=== PATIENT | female | born 1945 | race Caucasian/White ===

== ENCOUNTER 2020-07-05 14:39 | Outpatient (CLI) | payer MEDICARE, SELFPAY ==
--- NOTE | ~2020-07-05 | DEXA_ITS ---
Bone Density Report Name: Danitza Tidwell Age: 75 Sex: Female Ethnicity: White Date of : 1945 Indication: osteopenia; parental hip fracture; height loss; postmenopausal Referring Provider: Leonor, Nuzhat Dhillon Study: Bone densitometry was performed. Exam Date: July 05, 2020 Accession number: [id number] Bone Density: Region BMD T-score Z-score Classification AP Spine(L1, L2, L3) 0.902 -1.1 1.4 Osteopenia Femoral Neck (Left) 0.749 -0.9 1.3 Normal Total Hip (Left) 0.830 -0.9 1.0 Normal Femoral Neck (Right) 0.713 -1.2 1.0 Osteopenia Total Hip (Right) 0.733 -1.7 0.2 Osteopenia Femoral Neck Mean 0.731 -1.1 1.1 Osteopenia Total Hip Mean 0.782 -1.3 0.6 Osteopenia World Health Organization criteria for BMD impression classify patients as: Normal (T-score at or above -1.0), Osteopenia (T-score between -1.0 and -2.5), or Osteoporosis (T-score at or below -2.5). 10-year Fracture Risk(1): Major Osteoporotic Fracture 19% Hip Fracture 9.0% Reported Risk Factors: [place] (), Neck BMD=0.713, BMI=26.6, parental fracture (1) FRAX(R) Version 3.08. Fracture probability calculated for an untreated patient. Fracture probability may be lower if the patient has received treatment. Previous Exams: Region Exam Age BMD T-score BMD Change BMD Change Date g/cm2 vs Baseline vs Previous AP Spine (L1-L3) 07/05/2020 75 0.902 -1.1 -0.060 (-6.3%) -0.060 (-6.3%) 02/03/2018 72 0.962 -0.5 Total Hip(Left) 07/05/2020 75 0.830 -0.9 0.025 (3.1%)# 0.025 (3.1%)# 02/03/2018 72 0.805 -1.1 *Denotes significance at 95% confidence level, LSC for AP Spine = 0.022 g/cm2, LSC for Total Hip = 0.027 g/cm2 # Denotes dissimilar scan types or analysis methods Clinical Information Provided by Patient: Parent has had a hip fracture Has used the following medications: Vitamin D, Calcium, multivitamin Patient maximum height was 67 Menopause Age: 48 No regular weight bearing exercise Onset of menses at age 10 Number of children 0 Impression: The patient has low bone mass, based on the Right Total Hip T-score. The patient has risk factors, including: parental hip fracture. No significant bone loss was observed. Discussion: BONE DENSITY IS LOW AT ONE OR MORE SKELETAL SITES. This patient's lowest T-score is low at one or more skeletal sites. It meets the World Health Organization's (WHO) criteria for ?low bone mass? (T-score between -1.0 and -2.5). The patient's
== END 2020-07-05 14:40 | disposition home or self-care (01) ==
LOC: CHSIMG 14:42
PROVIDERS: PCP Family Medicine; Visit Provider Nurse Practitioner Family
DX: M85.88 Other specified disorders of bone density and structure, other site (principal); Z78.0 Asymptomatic menopausal state
CPT/HCPCS: 77080

== ENCOUNTER 2023-12-28 07:51 | Outpatient (CLI) | payer MEDICARE, SELFPAY | END 2023-12-28 07:52 | disposition home or self-care (01) | LOC: ANHAUDASC 07:53 | PROVIDERS: PCP Family Medicine; Visit Provider Otolaryngology | DX: H61.23 Impacted cerumen, bilateral (principal); J31.0 Chronic rhinitis; H90.3 Sensorineural hearing loss, bilateral | CPT/HCPCS: 92557; 92567 ==

== ENCOUNTER 2024-03-30 11:30 | Outpatient (RCR) | payer MEDICARE, SELFPAY | END 2024-04-10 23:59 | disposition home or self-care (01) | LOC: ANHAUDASC 11:30 | PROVIDERS: PCP Family Medicine; Visit Provider Family Medicine | DX: Z46.1 Encounter for fitting and adjustment of hearing aid (principal) | CPT/HCPCS: 99199; V5261 ==

== ENCOUNTER 2025-04-17 12:59 | Outpatient (CLI) | payer MEDICARE, SELFPAY ==
--- OUTSIDE RECORDS SUMMARY | 2025-04-17 13:40 | XMS_ITS | Clinical Summary ---
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 Name Role Phone Deon Valentino MD Primary Care Provider [phone] Deon Valentino MD Unavailable [phone] Allergies No known active allergies Medications ferrous sulfate 325 mg (65 mg of elemental iron) tablet take 1 Tablet by Oral route every day 0 09/15/19 13 Active aspirin (BABY ASPIRIN) 81 mg chewable tablet chew 1 tablet (81MG) by oral route every day 0 09/16/19 13 Active glucosamine sulfate (GLUCOSAMINE) 500 mg tablet take 1 by Oral route every day 0 09/15/19 13 Active calcium carbonate-vitami n D3 600 mg(1,500mg) -400 unit capsule take 1 by Oral route every day 0 09/15/19 13 Active multivitamin tabletIndication s:Vitamin Deficiency Prevention Take 1 tablet by mouth Active zinc 50 mg tablet Take by mouth Active diphenhydrAMINE (BENADRYL) 25 mg capsule Take 1 tablet/capsul e (25 mg total) by mouth every 6 (six) hours as needed for itching Nighttime sleep aid Active meloxicam (MOBIC) 15 mg tabletIndication s:Acute pain of left knee Take 1 tablet (15 mg total) by mouth daily 30 tablet 1 02/08/20 25 Active hydroCHLOROthiaz lisbeth 12.5 mg tabletIndication s:Essential hypertension TAKE 1/2 TABLET(6.25 MG) BY MOUTH DAILY 30 tablet 3 04/10/20 25 Active hydroCHLOROthiaz lisbeth 12.5 mg tabletIndication s:Essential hypertension TAKE 1/2 TABLET(6.25 MG) BY MOUTH DAILY 30 tablet 3 06/10/20 24 025 Discontinued Active Problems Problem Noted Date Diagnosed Date History of colon polyps 03/09/2025 Acute pain of left knee 02/07/2025 Assessment & Plan (02/07/2025 8:02 AM CDT): No injury mechanism. Left knee pain present for the last 1 month. No abnormal findings on exam. Discussed rest, ice and suggested use of knee brace. Trial course of NSAIDs, prescribed meloxicam 15 mg daily. Aware not to take additional NSAIDs. X-ray ordered today. Patient also interested in physical therapy, referral placed. Aware to reach out if experiencing any new or worsening pain. Will monitor response to above. Acute non-recurrent sinusitis 10/28/2024 Assessment & Plan (10/28/2024 1:26 PM TOWN PLANNER): Reports sinus congestion and cough for the past 3 weeks., Yellow nasal drainage and mild sinus pressure. Denies any fevers, sore throat or ear pain. Prescribed Augmentin, instructed patient to take medication with food. Continue drinking plenty of fluids. Can trial Flonase nasal spray 1-2 sprays 1-2 times per day. URI with cough and congestion 10/28/2024 Assessment & Plan (10/28/2024 1:28 PM TOWN PLANNER): Dry cough for the past 3 weeks, over the last few days has noted some wheezing. Did feel some shortness a breath when walking her dog, this is uncommon for her. No fevers and states she is otherwise feeling well. Normal appetite and energy. Given that she is having some wheezing prescribed low-dose prednisone taper. Reviewed signs and symptoms warranting more immediate evaluation. Would like for her to check back in next week if symptoms are not improving, will plan for chest x-ray. Explained to patient that assessment was limited with video visit. Encounter for screening colonoscopy 05/20/2024 Encounter for annual wellness exam in Medicare p atient 07/10/2022 Assessment & Plan (07/10/2022 8:46 AM TOWN PLANNER): Patient here for annual physical and for review of complete medical problem list. All the elements of the plan were completed as outlined by CMS. A copy of the prevention plan was given to the patient. I reviewed Medicare Wellness Questionnaire (other physicians involved in care, depression screen, advanced directives), cognitive/memory, and functional assessment. I reviewed and updated the complete problem list, medication list, family history, and immunization records with the patient. I provided preventive counseling and early detection interventions to the patient through health maintenance update and summary of today's office visit. Family history of colon cancer 06/05/2021 Overview (06/05/2021): Added automatically from request for surgery [id number] Personal history of colonic polyps 06/05/2021 Overview (06/05/2021): Added automatically from request for surgery [id number] Assessment & Plan (07/10/2022 8:28 AM TOWN PLANNER): Last c-scope 07/2021, recommendation to repeat in 3 years. History of COVID-19 04/22/2021 Assessment & Plan (04/22/2021 10:20 AM CDT): Mild illness course. NO concerning findings on exam or complaints of lingering symptoms. Will continue to monitor. Reviewed red flags with patient. Lipid screening 04/22/2021 Assessment & Plan (01/06/2022 8:31 AM CDT): 03/2021 TC 191 TRG 182 HDL 46 LDL 109 Assessment & Plan (04/22/2021 10:18 AM CDT): Reviewed previous labs, diet and exercise recommendations with patient today. Will check lipids today and call w/ results. BMI 25.0-25.9,adult 04/22/2021 Assessment & Plan (01/06/2022 8:27 AM CDT): Discussed healthy diet and importance of regular physical activity. Assessment & Plan (04/22/2021 10:22 AM CDT): Discussed healthy diet and importance of regular physical activity. BMI is acceptable for this patient. Encounter for colorectal cancer screening 2020 Assessment & Plan (04/22/2021 10:21 AM CDT): Last c-scope 2016 with 5 year recommended follow up. Given referral today. Denies any changes in weight or stool patterns. Encounter for Medicare annual wellness exam 10/2019 Assessment & Plan (07/02/2020 1:39 PM TOWN PLANNER): 1. Eat a healthy diet: focus on lean meats and proteins, more fruits, vegetables and whole grains and low in sugars and fats. Limit red meat and avoid processed meat. 2. Maintain a healthy weight; avoid being overweight. Aim for a normal body mass index (BMI) of 18.5-24.9. Help learning to eat healthier, we can set up appointment with radio station operator/freight brakeman. 3. Have an active lifestyle, strive for 30 minutes of moderate exercise 5 times a week and strength or resistance training at least twice a week. 4. Use broad-spectrum (UVA+UVB) sunscreen with SPF 30 or greater, is water resistant, limit time spent in the sun (10 am-4pm), wear hat, wear UV protective clothing, wear sunglasses. Never use a tanning bed. Skin that was irradiated may be more sensitive over your lifetime. 5. Does not smoke or chew tobacco. 6. Limit alcohol intake, 1 drink per day for a woman. Vitamin D insufficiency 07/02/2020 Assessment & Plan (07/02/2020 1:39 PM TOWN PLANNER): Takes vitamin D The blood level will be checked today. Advise to get 10 min of sun exposure to the hands and face 2-3 days of the week to boost Vit D levels. Need for influenza vaccination 07/02/2020 Assessment & Plan (07/02/2020 3:24 PM TOWN PLANNER): Flu vaccine given today. Discussed possible tenderness/redness at injection site. Encounter for screening mamm ogram for malignant neoplasm of breast 07/02/2020 Assessment & Plan (07/02/2020 3:24 PM TOWN PLANNER): Mammogram order given; will call with results when received. Encouraged to perform monthly SBE. Will have done at [facility] BMI 24.0-24.9, adult 07/02/2020 Assessment & Plan (07/02/2020 3:22 PM TOWN PLANNER): Discussed healthy diet and importance of regular physical activity. BMI is acceptable for this patient. Hemorrhoids 09/26/2019 Assessment & Plan (04/22/2021 10:26 AM CDT): C-scope 2016, hemorrhoids grade II-III Discussed dietary fiber intake of at least 30grams daily. To use miralax prn for constipation and increase hydration. Avoid straining. Reviewed red flags. Will check CBC today. Assessment & Plan (09/26/2019 1:07 PM TOWN PLANNER): Advised on need for fiber and stool softeners in diet. Increase daily hydration. Avoid straining Osteopenia of lumbar spine 01/13/2019 Assessment & Plan (07/10/2022 8:33 AM TOWN PLANNER): Bone density testing completed 07/2020, osteopenia. Continues calcium and vitamin D supplementation. Assessment & Plan (07/02/2020 3:25 PM TOWN PLANNER): Last DEXA 02/03/18 showing lumbar osteopenia. Will have bone scan completed at [facility]. Assessment & Plan (09/12/2019 2:06 PM TOWN PLANNER): Last DEXA 01/2018 showing osteopenia. Follow a Bone Healthy Diet and lifestyle: -Consume Calcium and vit D rich foods -Calcium and vitamin D3 supplementation daily: Calcium 1000-1500mg total daily dose, take with food. Vit D 400IU to 1000 IU total daily dose, unless otherwise instructed or prescription D medication indicated. -Fall precautions. -Perform weight bearing exercises at least 3 days a week for bone strengthening. Vitamin D level ordered; will contact w/results once rec'd. Assessment & Plan (01/13/2019 2:43 PM CDT): Reviewed DEXA from 01/2018. Lumbar spine osteopenia. Vitamin D level ordered. Follow a Bone Healthy Diet and lifestyle: -Consume Calcium and vit D rich foods -Calcium and vitamin D3 supplementation daily: Calcium 1000-1500mg total daily dose, take with food. Vit D 400IU to 1000 IU total daily dose, unless otherwise instructed or prescription D medication indicated. -Fall precautions. -Perform weight bearing exercises at least 3 days a week for bone strengthening. Post-menopausal 01/13/2019 Assessment & Plan (07/02/2020 3:25 PM TOWN PLANNER): Last DEXA 02/03/18 showing lumbar osteopenia. Will have bone scan completed at [facility]. Encounter for screening for lipoid disorders Assessment & Plan (07/02/2020 3:47 PM TOWN PLANNER): 01/19/19 JU=838 HDL=53 VZ=188 LDL=94 TC/HDL=3.2 07/02/20 SY=530 HDL=58 ZP=508 LDL=97 TC/HDL=3.3 Copy of results as well as written explanations given to Mrs Tidwell. The 10-year ASCVD risk score (Wallace JESUS Jr., et al., 2013) is: 27% Values used to calculate the score: Age: 75 years Sex: Female Is Non- : No Diabetic: No Tobacco smoker: No Systolic Blood Pressure: 132 mmHg Is BP treated: Yes HDL Cholesterol: 53 mg/dL Total Cholesterol: 193 mg/dL Assessment & Plan (01/13/2019 2:44 PM CDT): Lipid panel ordered; will call w/results when received. Reviewed diet/exercise recommendations. Essential hypertension 11/29/2014 Overview (12/04/2016): Hypertension Assessment & Plan (07/10/2022 8:47 AM TOWN PLANNER): Blood pressure is well controlled on current medication regimen. Denies any chest pain, shortness breast, palpitations or headaches. No changes made today. Refilled hydrochlorothiazide 6.25 mg daily Assessment & Plan (01/06/2022 8:24 AM CDT): Doing well on current regimen. Checking BP at home. Will call if SBP >140, DBP>90. Continue effort to improve diet-increase fruits/vegetables. Watch sodium intake <2000mg daily Labs ordered; will notify of results. Assessment & Plan (04/22/2021 10:19 AM CDT): BP mildly elevated today, patient has increased sodium consumption (pickles, salted vegetables and watermelon), reviewed recommended intake, sodium <2000mg daily. Will continue to monitor. Advised to check at home or return to office for nurse visit/bp check. Assessment & Plan (07/02/2020 1:38 PM TOWN PLANNER): The blood pressure is under good control. Ideally it should be under 130/80. Continue medications without adjustment. Continue efforts to eat well (4-5 fruits and veggies) daily and exercise for about 30 min nearly every day. Watch salt intake, keeping to less than 2000mg per day. Limit alcohol. Include strategies to cope with stress. Labs ordered today; will contact w/results once received. Assessment & Plan (09/12/2019 2:05 PM TOWN PLANNER): The blood pressure is under good control. Ideally it should be under 130/80. Continue medications without adjustment. Continue efforts to eat well (4-5 fruits and veggies) daily and exercise for about 30 min nearly every day. Watch salt intake, keeping to less than 2000mg per day. Limit alcohol. Include strategies to cope with stress. Labs ordered today; will contact w/results once received. Resolved Problems Problem Noted Date Diagnosed Date Resolved Date PAD (peripheral artery disease) 01/06/2022 05/22/2024 Assessment & Plan (01/06/2022 8:23 AM CDT): Denies any pain or swelling. Discussed use of compression stocking, continued regular exercise and elevating extremities. Continues taking Aspirin daily. Follow up for leg pain or swelling. Gastrointestinal hemorrhage 09/26/2019 07/02/2020 Assessment & Plan (09/26/2019 1:07 PM TOWN PLANNER): Recent CBC stable. Advised if chest pain shortness of breath distress or christopher red blood coming from rectum report immediately to ER or call 911. Will await follow-up with GI. Encounter for medical examin ariane to establish care 09/12/2019 09/12/2019 BMI 25.0-25.9,adult 09/12/2019 07/02/20 20 Assessment & Plan (09/12/2019 2:06 PM TOWN PLANNER): Discussed healthy diet and importance of regular physical activity. BMI is acceptable for this patient. Annual physical exam 01/13/2019 020 Assessment & Plan (01/13/2019 6:32 PM CDT): 1. Eat a healthy diet: focus on lean meats and proteins, more fruits, vegetables and whole grains and low in sugars and fats. Limit red meat and avoid processed meat. 2. Maintain a healthy weight; avoid being overweight. Aim for a normal body mass index (BMI) of 18.5-24.9. Help learning to eat healthier, we can set up appointment with radio station operator/freight brakeman. 3. Have an active lifestyle, strive for 30 minutes of moderate exercise 5 times a week and strength or resistance training at least twice a week. 4. Use broad-spectrum (UVA+UVB) sunscreen with SPF 30 or greater, is water resistant, limit time spent in the sun (10 am-4pm), wear hat, wear UV protective clothing, wear sunglasses. Never use a tanning bed. Skin that was irradiated may be more sensitive over your lifetime. 5. Do not smoke or chew tobacco. 6. Limit alcohol intake, 1 drink per day for a woman and 2 drinks per day for a man. HEALTH SCREENINGS: -DEXA completed 02/03/18 (osteopenia) -CRC=07/29/16 AM[facility], recheck 5yrs d/t polyps (Ket[place]) -mamm=spring 2018? [facility]. Release signed today to get copy of results. Need for pneumococcal vaccination 01/13/2019 07/02/2020 Assessment & Plan (01/13/2019 6:12 PM CDT): Pneumovax 23 vaccine given today. Discussed possible tenderness/redness at injection site. Impacted cerumen 12/10/2015 07/02/2020 Overview (12/04/2016): Impacted cerumen of both ears Hematochezia 04/09/2015 07/02/2020 Overview (12/04/2016): BRBPR - Bright red blood per rectum Assessment & Plan (10/03/2019 1:34 PM TOWN PLANNER): Over the last feww weeks has had BRB on TP and once in the stool water. No other sx and cbc good. Most recent colon 16 and 8mm polyp,tics and II-III roids. Offered repeat colonoscopy but presentation most likely roids. Discussed increased dietary fiber. Return prn. Encounters Date Type Department Care Team Description 04/17/2025 Telephone [facility] [address] [phone] Deon Valentino MD Referral Request (Audiology) 03/09/2025 Telephone [facility] at [address] [place] [address] Elvi Castro MA Schedule Colonoscopy 02/14/2025 Results Follow-Up [facility] [address] [phone] Lisa Bedolla NP XR Knee Left 4+ Vw 02/07/2025 8:00 AM CDT - 02/07/2025 11:59 PM CDT Hospital Encounter [facility] [address] [place] [address] Acute pain of left knee Discharge Disposition: Discharge to home or self care 02/07/2025 7:00 AM CDT Office Visit [facility] [address] [phone] Lisa Bedolla NP Acute pain of left knee (Primary Dx); BMI 25.0-25.9,adult 02/07/2025 Telephone [facility] [address] [place] [phone] Deon Valentino MD Medical Question/Miscellan eous 02/01/2025 8:26 AM CDT - 02/01/2025 11:59 PM CDT Hospital Encounter [facility] [address] [place] [address] Screening mammogram, encounter for Discharge Disposition: Discharge to home or self care 02/01/2025 Results Follow-Up [facility] [address] [place] [phone] Deon Valentino MD Screening Mammogram Bilateral W Lloyd from Last 3 Months Immunizations Immunization Administration Dates Next Due Influenza, Quadrivalent, Hig h Dose, Preservative Free, Intrr 08/11/2023,07/10/2022,07/08/2021,07/02 Influenza, Quadrivalent, Spl it, Preservative Free, Intramuscular 09/09/2016 Influenza, Trivalent, High D ose, Split, Preservative Free, Intramuscular 08/12/2024,08/01/2019,07/12/2018,07/06 Influenza, Trivalent, IM (MDV) 07/31/2014,2012 Influenza, Trivalent, Preser vative Free, Intramuscular 07/01/2014 Influenza, Unspecified 04/22/2021(Deferr ed: Patient Refused),09/07/2017(Deferred: Patient Refused) Pfizer SARS-CoV-2 Monovalent Vaccination (12+ Yrs) PURPLE 11/16/2020,10/26/2020 Pneumococcal Conjugate PCV 13 11/21/2015 Pneumococcal Polysaccharide PPV23 01/13/2019 ZOSTER Recombinant 04/09/2020,09/16/2019 Surgical History Surgery Date Site/Laterality Comments COLONOSCOPY 07/29/2016 BREAST BIOPSY 08/31/1989 - 08/30/1990 Bilateral pt unsure of year, states benign, she does remember having to go to surgery for one maybe 1989ish w scar under breast (unsure which breast), no scars visible. 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 HTN (hypertension) Fibrocystic disease of breast Adenomatous colon polyp Vitamin D deficiency Low bone mass Family History Medical History Relation Name Comments Other Brother 2 Alive and well; Skin cancer Brother 3 cancer, skin; Heart disease Father Heart disease; Cause of : Heart disease Heart disease Mother Heart disease; Hypertension Mother Hypertension; Breast cancer Sister 1 Colon cancer Sister 1 Other Sister 2 Alive and well; Ovarian cancer Neg Hx Thyroid cancer Neg Hx Relation Name Status Comments Brother 1 Alive Brother 2 Brother 3 Father (Age 92) Mother (Age 95) Sister 1 Alive Sister 2 Social History Tobacco Use Types Packs/Day Years Used Date Smoking Tobacco: Never Smokeless Tobacco: Never Alcohol Use Standard Drinks/Week Comments Yes 0 (1 standard drink = 0.6 oz pure alcohol) a glass a wine, 2-3 times a week. AUDIT-C Answer Date Recorded Q1: How often do you have a drink containing alc ohol? 2-4 times a month 07/25/2024 Q2: How many drinks containi ng alcohol do you have on a typical day when you are drinking? 5 or 6 07/25/2024 Q3: How often do you have si x or more drinks on one occasion? Never 07/25/2024 PHQ-2 Answer Date Recorded PHQ-2 Total Score (If total score is 3 or more points, staff should administer the PHQ-9) 0 02/07/2025 Personal Safety Answer Date Recorded Have you ever been in or are you currently in a harmful physical or emotional relationship or is someone making you feel afraid or unsafe? Denies 07/26/2024 Comments No Sex and Gender Information Value Date Recorded Sex Assigned at Not on file Legal Sex Female 9:07 PM TOWN PLANNER Gender Identity Not on file Sexual Orientation Not on file Obstetrics History Para Term AB IAB SAB Ectopic Multiple Livin g Live Births 0 0 0 0 0 0 0 0 0 0 0 Last Filed Vital Signs Vital Sign Reading Time Taken Comments Blood Pressure 116/68 02/07/2025 6:55 AM CDT Pulse 78 02/07/2025 6:55 AM CDT Temperature 36.8 C (98.2 F) 07/26/2024 9:01 AM TOWN PLANNER Respiratory Rate 16 02/07/2025 6:55 AM CDT Oxygen Saturation 99% 02/07/2025 6:55 AM CDT room air Inhaled Oxygen Concentration - - Weight 73.9 kg (163 lb) 02/07/2025 6:55 AM CDT Height 170.2 cm (5' 7) 02/07/2025 6:55 AM CDT Body Mass Index 25.53 02/07/2025 6:55 AM CDT Plan of Treatment Upcoming Encounters Date Type Department Care Team (Late st Contact Info) Description 08/07/2025 12:30 PM TOWN PLANNER Hospital Encounter [address] [address] Tramaine Newberry DO [address] [place] [address] 08/07/2025 12:30 PM TOWN PLANNER - 08/07/2025 1:00 PM TOWN PLANNER Surgery [address] [address] Tramaine Newberry, [address] [place] [address] COLONOSCOPY Scheduled Procedures Name Priority Associated Diagnoses Date/Ti me COLONOSCOPY History of colon polyps Family history of colon cancer 08/07/2025 12:30 PM TOWN PLANNER Health Maintenance Due Date Last Done Comments DTaP/Tdap/Td Vaccine (1 - Tdap) 1956 Hepatitis B Screening 1963 Covid-19 Vaccine (3 - 2023-2 5 season) 2024 11/16/2020, 10/26/2020 Osteoporosis Screening-Bone Density Scan 09/23/2024 09/23/2022, 07/05/2020, 02/03/2018 Influenza Vaccine (#1) 2025 , 08/11/2023, 07/10/2022, Additional history exists Well Visit 65+ 05/13/2025 05/13/2024, 12/29, 07/10/2022, Additional history exists Depression Screening 02/07/2026 02/07/2025, 10/28/2024, 05/13/2024, Additional history exists Fall Risk Assessment 02/07/2026 02/07/2025, 10/28/2024, 05/13/2024, Additional history exists Pneumococcal vaccine 65+ Completed 01/13/2019, 10/30 Zoster Vaccine Completed 04/09/2020, 09/16/2019 Procedures Procedure Name Priority Date/Time Associated Diagnosis Comments XR KNEE LEFT 4 OR MORE VIEWS Schedule Routine, Read Routine (OP Routine) 02/07/2025 8:20 AM CDT Acute pain of left knee SCREENING MAMMOGRAM BILATERAL W LLOYD Schedule Routine, Read Routine (OP Routine) 02/01/2025 8:52 AM CDT Screening mammogram, encounter for DEXA AXIAL SKELETON BONE DENSITY 1 OR MORE SITES Schedule Routine, Read Routine (OP Routine) 09/23/2022 1:52 PM TOWN PLANNER Osteopenia of lumbar spine from Last 3 Months or Most Recently Relevant to Health Maintenance Results * XR Knee Left 4+ Vw (02/07/2025 8:20 AM CDT) Anatomical Region Laterality Modality Lower Extremities, Knee Left Computed Radiography 02/07/2025 4:57 PM CDT Narrative 02/07/2025 4:58 PM CDT EXAM DESCRIPTION: XR KNEE LEFT 4 OR MORE VIEWS REASON FOR STUDY: left knee pain, no known injury Medial pain in knee x 1-2 months No previous injury or surgery FINDINGS: Four views submitted without comparison. No acute fracture. [id number] medial predominant tricompartmental left knee osteoarthritis. Posterior recess loose bodies are present. No effusion. IMPRESSION: [id number] medial predominant tricompartmental left knee osteoarthritis with posterior recess loose bodies. THIS IS AN ELECTRONICALLY VERIFIED FINAL REPORT 02/07/2025 4:58 PM - Electronically signed by Ankur Parker M.D. MF: [id number] Report ID: [id number] Reading Location: [id number] Procedure Note Ankur Parker MD - 02/07/2025 EXAM DESCRIPTION: XR KNEE LEFT 4 OR MORE VIEWS REASON FOR STUDY: left knee pain, no known injury Medial pain in knee x 1-2 months No previous injury or surgery FINDINGS: Four views submitted without comparison. No acute fracture. [id number]-[id number] medial predominant tricompartmentalleft knee osteoarthritis. Posterior recess loose bodies are present. Noeffusion. IMPRESSION: [id number] medial predominant tricompartmental left kneeosteoarthritis with posterior recess loose bodies. THIS IS AN ELECTRONICALLY VERIFIED FINAL REPORT 02/07/2025 4:58 PM - Electronically signed by Ankur Parker M.D. MF: [id number] Report ID: [id number] Reading Location: [place] [address] Lisa Bedolla NON CDL DRIVER IMG XR PROCEDURES Final Res ult * Screening Mammogram Bilateral W Lloyd (02/01/2025 8:52 AM CDT) Anatomical Region Laterality Modality Breast Bilateral Mammography Impressions 02/01/2025 9:25 AM CDT Bilateral No evidence of malignancy in either breast. OVERALL BI-RADS FINAL ASSESSMENT: 2 - Benign RECOMMENDATION: Recommend bilateral annual screening mammography. Narrative 02/01/2025 9:25 AM CDT EXAMINATION: Screening Mammogram Bilateral W Lloyd: 02/01/2025 COMPARISON: Relevant prior studies available at the time of interpretation were reviewed. TECHNIQUE: Mammography was performed with 2D and digital breast tomosynthesis (DBT) images. CAD was utilized. BREAST PARENCHYMAL COMPOSITION: The breasts are extremely dense, which lowers the sensitivity of mammography. FINDINGS: There are benign appearing scattered calcifications in both breasts without suspicious change. There is no new suspicious finding in either breast on mammogram. Self Screening Mammogram IMG MAMMO PROCEDURES Fi nal Result * Dexa Axial Skeleton Bone Density 1 or 2 Site (09/23/2022 1:52 PM TOWN PLANNER) Anatomical Region Laterality Modality Body N/A Other 09/24/2022 12:1 5 AM TOWN PLANNER Narrative 09/24/2022 12:15 AM TOWN PLANNER EXAM DESCRIPTION: DEXA AXIAL SKELETON BONE DENSITY 1 OR MORE SITES REASON FOR STUDY: 77 y/o year old F with given history of screening. Postmenopausal Pyrotechnic Assembler/Model: iRx Reminder Discovery SL (S/N [id number]) CLINICAL INFORMATION: Current height: 67 inches Maximum height: 67.5 inches Weight: 165 pounds Risk factors: Parental hip fracture, postmenopausal COMPARISON: None available. FINDINGS: AP LUMBAR SPINE L1-L4: Total BMD is 0.978 g/cm2 T-score is -0.6 LEFT HIP: Total BMD is 0.822 g/cm2 T-score is -1.0 Femoral neck BMD is 0.766 g/cm2 T-score is -0.7 FRAX: FRAX not reported due to T-scores of hip, femoral neck and/or spine being at or above -1.0 (Normal). IMPRESSION: Based on the left total hip bone mineral density (T-score -1.0 ) the patient has normal bone mass . REFERENCE: Bone mineral density: Normal (T-score above or = -1.0) Low bone mass (T-score between -1.0 and -2.5) replaces the previously used term osteopenia Osteoporosis (T-score = or below -2.5) Medical evaluation for secondary causes of low bone mineral density may be appropriate. FRAX is a World Health Organization validated fracture risk assessment tool that calculates a person's 10 year probability of a major osteoporosis related fracture and hip fracture. According to the National Osteoporosis Foundation guidelines, postmenopausal women and men age 50 or older with low bone mass and a 10 year probability of a major osteoporosis related fracture = or greater than 20% or a 10 year probability of a hip fracture = or greater than 3% should be considered for treatment. For further information, including treatment recommendations, please refer to the 2013 ISCD Official Positions (http://www.iscd.org) and the NOF's Clinician's Guide to Prevention and Treatment of Osteoporosis (http://www.nof.org/professionals/clinical-guidelines) THIS IS AN ELECTRONICALLY VERIFIED FINAL REPORT 09/24/2022 12:15 AM - Electronically signed by Ankur Parker M.D. MF: [email or web address] Report ID: [id number] Reading Location: [id number] Procedure Note Ankur Parker MD - 09/24/2022 EXAM DESCRIPTION: DEXA AXIAL SKELETON BONE DENSITY 1 OR MORE SITES REASON FOR STUDY: 77 y/o year old F with given history ofscreening. Postmenopausal Pyrotechnic Assembler/Model: iRx Reminder Discovery SL (S/N [id number]) CLINICAL INFORMATION: Current height: 67 inches Maximum height: 67.5 inches Weight: 165 pounds Risk factors: Parental hip fracture, postmenopausal COMPARISON: None available. FINDINGS: AP LUMBAR SPINE L1-L4: Total BMD is 0.978 g/cm2 T-score is -0.6 LEFT HIP: Total BMD is 0.822 g/cm2 T-score is -1.0 Femoral neck BMD is 0.766 g/cm2 T-score is -0.7 FRAX: FRAX not reported due to T-scores of hip, femoral neck and/or spine beingat or above -1.0 (Normal). IMPRESSION: Based on the left total hip bone mineral density (T-score -1.0 ) the patient has normal bone mass . REFERENCE: Bone mineral density: Normal (T-score above or = -1.0) Low bone mass (T-score between -1.0 and -2.5) replaces thepreviously used term osteopenia Osteoporosis (T-score = or below -2.5) Medical evaluation for secondary causes of low bone mineral density may be appropriate. FRAX is a World Health Organization validated fracture risk assessmenttool that calculates a person's 10 year probability of a major osteoporosisrelated fracture and hip fracture. According to the National OsteoporosisFoundation guidelines, postmenopausal women and men age 50 or older with low bonemass and a 10 year probability of a major osteoporosis related fracture = or greater than 20% or a 10 year probability of a hip fracture = or greaterthan 3% should be considered for treatment. For further information, including treatment recommendations, please referto the 2013 ISCD Official Positions (http://www.iscd.org) and the NOF's Clinician's Guide to Prevention and Treatment of Osteoporosis (http://www.nof.org/professionals/clinical-guidelines) THIS IS AN ELECTRONICALLY VERIFIED FINAL REPORT 09/24/2022 12:15 AM - Electronically signed by Ankur Parker M.D. MF: [email or web address] Report ID: [id number] Reading Location: [place] [address] Lisa Bedolla NON CDL DRIVER IMG DXA PROCEDURES Final Re sult from Last 3 Months or Most Recently Relevant to Health Maintenance Insurance [employer] CHOICE MEDICARE PPO Advance Directives For more information, please contact: [phone] * Full Code (Latest Code Status on File) Date Activated Date Inactivated Comments 07/26/2024 7:08 AM 07/26/2024 1:22 PM * Full Code Date Activated Date Inactivated Comments 07/26/2024 7:08 AM 07/26/2024 7:08 AM * Full Code Date Activated Date Inactivated Comments 07/22/2021 8:19 AM 07/22/2021 1:48 PM * Full Code Date Activated Date Inactivated Comments 07/22/2021 7:11 AM 07/22/2021 8:19 AM Care Teams Prototype Machine Operator Relationship Specialty Start Date End Date Deon Valentino MD [address] [place] [address] PCP - General Family Medicine 02/25/17 Deon Valentino MD [address] [place] [address] 02/25/17
--- OUTSIDE RECORDS SUMMARY | 2025-04-17 13:40 | XMS_ITS | Encounter Summary ---
Author Organization [facility] Address [address] [place] [address] Care Team Providers Care Graphite Disk Assembler Name Role Phone Deon Valentino MD Primary Care Provider [phone] Deon Valentino MD Unavailable [phone] Reason for Referral * Consultation (Routine) - Closed Specialty Diagnoses / Procedures Referred By Nimo corey Referred To Contact Audiology Diagnoses Hearing disorder, unspecified laterality Lisa Bedolla NP [address] [facility] [place] [address] Phone: tel: fax: External Order Referral ID Status Reason Start Date Expiration Date V isits Requested Visits Authorized [id number] Closed Specialty Services Required 04/17/2025 05/17/2026 1 1 Question Answer Please select the performing region: External Order [171] # of visits: [address] Lora Nuñez [address] [place] [address] Reason for Visit * Reason Onset Date Comments Referral Request 04/17/2025 Audiology Encounter Details Date Type Department Care Team (Late st Contact Info) Description 04/17/2025 [facility]phone [facility] [address] [facility] [place] [address] Deon Valentino MD [address] [place] [address] Referral Request (Audiology) Social History Tobacco Use Types Packs/Day Years [...] on file 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 Gender Identity Not on file Sexual Orientation Not on file documented as of this encounter Miscellaneous Notes * Telephone Encounter - Jaquelin Solano - 04/17/2025 12:53 PM CDT Referral faxed, received confirmation * Telephone Encounter - Mindi Tomlinson - 04/17/2025 12:00 PM CDT Referral Provider Name: Dr Lora Nuñez Specialty: Audiology Address: [address] [place] [address] [facility], Zip: [place] [address] Diagnosis Code/Symptom/Reason Patient is being seen: H91.90 Date of Appointment: 04/17/2025 at 1 pm NPI#: [id number] Tax ID#: [id number] Is insurance in chart up to date? Yes Additional Comments: was unaware of them needing referral until today Does message need to be routed? Yes-Action Needed documented in this encounter Plan of Treatment Upcoming Encounters Date Type Department Care Team (Late st Contact Info) Description 08/07/2025 12:30 PM FLAG CAR DRIVER Hospital Encounter [address] [address] Tramaine Newberry, DO [address] [facility] [address] [place] [address] 08/07/2025 12:30 PM FLAG CAR DRIVER - 08/07/2025 1:00 PM FLAG CAR DRIVER Surgery [address] [address] Tramaine Newberry, [address] [facility] [address] [place] [address] COLONOSCOPY Scheduled Procedures Name Priority Associated Diagnoses Date/Ti me COLONOSCOPY History of colon polyps Family history of colon cancer 08/07/2025 12:30 PM FLAG CAR DRIVER Scheduled Referrals Name Type Priority Associated Diagnoses Orde r Schedule Ambulatory referral to Audiology (ADULT) Outpatient Referral Routine Hearing disorder, unspecified laterality Expected: 06/17/2025 (Approximate), Expires: 04/17/2026 documented as of this encounter Visit Diagnoses Diagnosis History of colon polyps- Primary Family history of colon cancer Family history of malignant neoplasm of gastrointestinal tract Hearing disorder, unspecified laterality- Primary History of colon polyps Family history of colon cancer Family history of malignant neoplasm of gastrointestinal tract documented in this encounter Care Teams Graphite Disk Assembler Relationship Specialty Start Date End Date Deon Valentino MD [address] [place] [address] PCP - General Family Medicine 02/25/17 Deon Valentino MD [address] [place] [address] 02/25/17 documented as of this encounter
--- OUTSIDE RECORDS SUMMARY | 2025-04-17 13:40 | XMS_ITS | Encounter Summary ---
Author Organization [facility] Address [address] [place] [address] Care Team Providers Care Surveyor Helper Name Role Phone Deon Valentino MD Primary Care Provider [phone] Deon Valentino MD Unavailable [phone] Encounter Details Date Type Department Care Team (Late st Contact Info) Description 09/22/2022 Telephone [facility] [address] [place] [id number] Juana Quintanilla, RT Social History Tobacco Use Types Packs/Day Years Used Date Smoking Tobacco: Never Smokeless Tobacco: Never Alcohol Use Standard Drinks/Week Comments Yes 0 (1 standard drink = 0.6 oz pure alcohol) a glass a wine, 2-3 times a week. AUDIT-C Answer Date Recorded Q1: How often do you have a drink containing alc ohol? 2-4 times a month 07/22/2021 Q2: How many drinks containi ng alcohol do you have on a typical day when you are drinking? 1 or 2 07/22/2021 Q3: How often do you have si x or more drinks on one occasion? 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 Gender Identity Not on file Sexual Orientation Not on file documented as of this encounter Plan of Treatment Upcoming Encounters Date Type Department Care Team (Late st Contact Info) Description 08/07/2025 12:30 PM SILK SNAPPER Hospital Encounter [facility] [address] [place] [address] Tramaine Newberry DO [address] [facility] [address] [place] [address] 08/07/2025 12:30 PM SILK SNAPPER - 08/07/2025 1:00 PM SILK SNAPPER Surgery [address] [address] Tramaine Newberry, [address] [facility] [address] [place] [address] COLONOSCOPY Scheduled Procedures Name Priority Associated Diagnoses Date/Ti me COLONOSCOPY History of colon polyps Family history of colon cancer 08/07/2025 12:30 PM SILK SNAPPER documented as of this encounter Visit Diagnoses Not on filedocumented in this encounter Care Teams Surveyor Helper Relationship Specialty Start Date End Date Deon Valentino MD [address] [place] [address] PCP - General Family Medicine 02/25/17 Deon Valentino MD [address] [place] [address] 02/25/17 documented as of this encounter
--- OUTSIDE RECORDS SUMMARY | 2025-04-17 13:41 | XMS_ITS | Clinical Summary ---
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 Gender Identity Not on file Sexual Orientation Not on file Plan of Treatment Health Maintenance Due Date Last Done Comments DTaP, Tdap and Td Vaccines ( 1 - Tdap) 1964 Annual Medicare Wellness Visit 2008 Dexa Scan (General) 2008 RSV Immunization or 60+ Years (1 - 1-dose 75+ series) 2018 COVID-19 Vaccine (3 - 2023-2 5 season) 2024 11/16/2020, 10/26/2020 Pneumococcal Vaccine: 50+ Years Completed 01/13/2019, 11/21/2015 Zoster Vaccines Completed 04/09/2020, 09/16/2019 Meningococcal B Vaccine Aged Out No l onger eligible based on patient's age to complete this topic Meningococcal Vaccine Aged Out No arleth hallie eligible based on patient's age to complete this topic RSV Immunizations Under 20 Months Aged Out No longer eligible b ased on patient's age to complete this topic Insurance [employer] Care Teams Insurance Examining Clerk Relationship Specialty Start Date End Date Deon Valentino MD [address] [address] PCP - General INTERNAL MEDICINE 07/11/19
== END 2025-04-17 13:00 | disposition home or self-care (01) ==
LOC: ANHAUDASC 13:02
PROVIDERS: PCP Family Medicine; Visit Provider Family Medicine
DX: H90.3 Sensorineural hearing loss, bilateral (principal)
CPT/HCPCS: 92557; 92567